=== PATIENT | male | born 1970 | race African-American/Black ===

== ENCOUNTER 2016-11-29 21:46 | Emergency (ER) | payer MEDICAID, OTHER ==
[~2016-11-29] VITALS: Ht 175.3 cm; Wt 95.3 kg
[2016-11-29] MEDS ORDERED: MELO15TA39 (22:13)
[2016-11-29] MEDS ORDERED: PENI500T (22:13)
[2016-11-29] MEDS: LACTATED RINGERS 1,000 ML IV ONE (22:41)
[2016-11-29] MEDS: ONDANSETRON 4 MG/2 ML (SDV) Z0FRAN IVP ONE (22:41)
[2016-11-29] MEDS: ACETAMINOPHEN 500 MG TAB (TYLENOL) PO ONE (22:41)
[2016-11-29 22:44] LABS: BASOPHILS % (AUTO) 0 % (0-10); EOSINOPHILS % (AUTO) 0 % (0-10); LYMPHOCYTES # (AUTO) 1.6 X 10^3 (1.0-4.0); LYMPHOCYTES % (AUTO) 25 % (12-44); MEAN CORPUSCULAR HEMOGLOBIN 23 PG (25-34); MEAN CORPUSCULAR HGB CONC 34 G/DL (32-36); MEAN CORPUSCULAR VOLUME 69 FL (80-99); MEAN PLATELET VOLUME 9.9 FL (7.4-10.4); MONOCYTES # (AUTO) 0.7 X 10^3 (0.0-1.0); MONOCYTES % (AUTO) 10 % (0-12); NEUTROPHILS # (AUTO) 4.1 X 10^3 (1.8-7.8); NEUTROPHILS % (AUTO) 64 % (42-75); PLATELET COUNT 243 10^3/uL (130-400); RED BLOOD COUNT 6.46 10^6/uL (4.35-5.85); RED CELL DISTRIBUTION WIDTH 18.5 % (10.0-14.5); WHITE BLOOD COUNT 6.3 10^3/uL (4.3-11.0)
[2016-11-29 22:53] LABS: PROTHROMBIN TIME PATIENT 12.5 SEC (12.2-14.7)
[2016-11-29 23:04] LABS: ALANINE AMINOTRANSFERASE 13 U/L (0-55); ALBUMIN 4.5 G/DL (3.2-4.5); AMYLASE 112 U/L (25-125); ANION GAP 15 MMOL/L (5-14); ASPARTATE AMINO TRANSFERASE 17 U/L (5-34); BILIRUBIN,TOTAL 0.6 MG/DL (0.1-1.0); BLOOD UREA NITROGEN 11 MG/DL (7-18); BUN/CREATININE RATIO 8; CALCIUM 9.7 MG/DL (8.5-10.1); CARBON DIOXIDE 21 MMOL/L (21-32); CHLORIDE 104 MMOL/L (98-107); CREATINE KINASE 204 U/L (30-200); CREATININE SERUM 1.34 MG/DL (0.60-1.30); GFR ESTIMATED > 60; GLUCOSE 106 MG/DL (70-105); LIPASE 20 U/L (8-78); MAGNESIUM 2.3 MG/DL (1.8-2.4); POTASSIUM 4.2 MMOL/L (3.6-5.0); SODIUM 140 MMOL/L (135-145); TOTAL PROTEIN 8.4 G/DL (6.4-8.2)
--- NOTE | 2016-11-29 23:10 | ED General ---
General Chief Complaint: General Problems/Pain Stated Complaint: FEVER,SWEATING,BLURRED VISION,STUTTERING,VOMITING Nursing Triage Note: GENERALIZED LEFT SIDED SWEATING/PAIN X4 DAYS Nursing Sepsis Screen: No Definite Risk Source of Information: Patient, Other (SIGNIFICANT OTHER) History of Present Illness Time Seen by Provider: 22:15 Initial Comments PT WITH MULTIPLE COMPLAINTS HAS NOT FELT WELL FOR 3-4 DAYS, BUT HAS BEEN WORSE SINCE YESTERDAY C/O FEVER UP TO 102 C/O NAUSEA AND VOMITING--VOMITED X 2 TODAY AND STATES HE 'CAN'T KEEP ANYTHING DOWN' NO DIARRHEA NO ABDOMINAL PAIN C/O DIZZINESS C/O BLURRY VISION C/O SWEATING ONLY ON THE LEFT SIDE OF HIS BODY C/O GENERALIZED WEAKNESS C/O SLIGHT CHEST PAIN C/O SLIGHT HEADACHE NO NECK OR BACK PAIN OR STIFFNESS NO PARESTHESIAS OR MOTOR DEFICITS NO URINARY SYMPTOMS NO DIFFICULTY WITH BM'S NO COUGH OR SHORTNESS OF BREATH NO KNOWN SICK CONTACTS WENT TO [facility] IN [place] LAST PM FOR SAME STATES THEY DID NOT GIVE HIM A DX BUT GAVE HIM RX'S FOR PENICILLIN AND MOBIC. PCP: SHANEL Allergies and Home Medications Allergies Coded Allergies: No Known Drug Allergies (Unverified , 11/29/16) Home Medications Cefdinir 300 Mg Capsule, 300 MG PO BID, #20 FOR INFECTION Prescribed by: LEA LINDSEY on 11/30/16 0121 Meloxicam 15 Mg Tablet, #20 (Reported) Ondansetron 4 Mg Tab.rapdis, 4 MG PO Q4H, #10 Prescribed by: LEA LINDSEY on 11/30/16 0121 Penicillin V Potassium 500 Mg Tablet, #28 (Reported) Past Iuovrqp-Pvljiu-Jwzdee Hx Patient Social History Alcohol Use: Denies Use Recreational Drug Use: No Smoking Status: Current Everyday Smoker Type Used: Cigarettes 2nd Hand Smoke Exposure: Yes Recent Foreign Travel: No Contact w/Someone Who Travel: No Recent Infectious Disease Expo: No Recent Hopitalizations: No Immunizations Up To Date Tetanus Booster (TDap): Unknown Seasonal Allergies Seasonal Allergies: No Surgeries Surgeries: Adenoidectomy, Tonsillectomy Physical Exam Vital Signs Vital Sign - Last 12Hours 11/29/16 22:14 Temp 100.7 Pulse 71 Resp 16 B/P (MAP) 121/68 Pulse Ox 97 O2 Delivery Room Air Capillary Refill : Less Than 3 Seconds Focused Exam Lactic Acid Level Laboratory Tests Test 11/29/16 22:30 Lactic Acid Level 1.59 MMOL/L (0.50-2.00) Progress/Results/Core Measures Results/Orders Lab Results Laboratory Tests Test 11/29/16 22:30 11/29/16 23:55 Range/Units White Blood Count 6.3 4.3-11.0 10^3/uL Red Blood Count 6.46 H 4.35-5.85 10^6/uL Hemoglobin 15.0 13.3-17.7 G/DL Hematocrit 45 40-54 % Mean Corpuscular Volume 69 L 80-99 FL Mean Corpuscular Hemoglobin 23 L 25-34 PG Mean Corpuscular Hemoglobin Concent 34 32-36 G/DL Red Cell Distribution Width 18.5 H 10.0-14.5 % Platelet Count 243 130-400 10^3/uL Mean Platelet Volume 9.9 7.4-10.4 FL Neutrophils (%) (Auto) 64 42-75 % Lymphocytes (%) (Auto) 25 12-44 % Monocytes (%) (Auto) 10 0-12 % Eosinophils (%) (Auto) 0 0-10 % Basophils (%) (Auto) 0 0-10 % Neutrophils # (Auto) 4.1 1.8-7.8 X 10^3 Lymphocytes # (Auto) 1.6 1.0-4.0 X 10^3 Monocytes # (Auto) 0.7 0.0-1.0 X 10^3 Eosinophils # (Auto) 0.0 0.0-0.3 10^3/uL Basophils # (Auto) 0.0 0.0-0.1 10^3/uL Prothrombin Time 12.5 12.2-14.7 SEC INR Comment 1.0 0.8-1.4 Activated Partial Thromboplast Time 29 24-35 SEC Sodium Level 140 135-145 MMOL/L Potassium Level 4.2 3.6-5.0 MMOL/L Chloride Level 104 98-107 MMOL/L Carbon Dioxide Level 21 21-32 MMOL/L Anion Gap 15 H 5-14 MMOL/L Blood Urea Nitrogen 11 7-18 MG/DL Creatinine 1.34 H 0.60-1.30 MG/DL Estimat Glomerular Filtration Rate > 60 BUN/Creatinine Ratio 8 Glucose Level 106 H 70-105 MG/DL Lactic Acid Level 1.59 0.50-2.00 MMOL/L Calcium Level 9.7 8.5-10.1 MG/DL Magnesium Level 2.3 1.8-2.4 MG/DL Total Bilirubin 0.6 0.1-1.0 MG/DL Aspartate Amino Transf (AST/SGOT) 17 5-34 U/L Alanine Aminotransferase (ALT/SGPT) 13 0-55 U/L Alkaline Phosphatase 81 40-136 U/L Total Creatine Kinase 204 H 30-200 U/L Creatine Kinase MB 0.4 <6.6 NG/ML Troponin I < 0.30 <0.30 NG/ML Total Protein 8.4 H 6.4-8.2 G/DL Albumin 4.5 3.2-4.5 G/DL Amylase Level 112 25-125 U/L Lipase 20 8-78 U/L Free Thyroxine 0.74 0.70-1.48 NG/DL TSH [place] Testing 0.23 L 0.35-4.94 UIU/ML Urine Color YELLOW Urine Clarity SLIGHTLY CLOUDY Urine pH 5 5-9 Urine Specific [place] 1.025 H 1.016-1.022 Urine Protein 2+ H NEGATIVE Urine Glucose (UA) NEGATIVE NEGATIVE Urine Ketones 3+ H NEGATIVE Urine Nitrite NEGATIVE NEGATIVE Urine Bilirubin 1+ H NEGATIVE Urine Urobilinogen NORMAL NORMAL MG/DL Urine Leukocyte Esterase 2+ H NEGATIVE Urine RBC (Auto) 4+ H NEGATIVE Urine RBC 5-10 H /HPF Urine WBC 5-10 H /HPF Urine Squamous Epithelial Cells 25-50 H /HPF Urine Crystals NONE /LPF Urine Bacteria FEW H /HPF Urine Casts NONE /LPF Urine Mucus LARGE H /LPF Urine Culture Indicated YES Urine Opiates Screen NEGATIVE NEGATIVE Urine Oxycodone Screen NEGATIVE NEGATIVE Urine Methadone Screen NEGATIVE NEGATIVE Urine Propoxyphene Screen NEGATIVE NEGATIVE Urine Barbiturates Screen NEGATIVE NEGATIVE Ur Tricyclic Antidepressants Screen NEGATIVE NEGATIVE Urine Phencyclidine Screen NEGATIVE NEGATIVE Urine Amphetamines Screen NEGATIVE NEGATIVE Urine Methamphetamines Screen NEGATIVE NEGATIVE Urine Benzodiazepines Screen NEGATIVE NEGATIVE Urine Cocaine Screen NEGATIVE NEGATIVE Urine Cannabinoids Screen POSITIVE H NEGATIVE My Orders Orders - LEA LINDSEY DO Saline Lock/Iv-Start (11/29/16 22:24) Ekg Tracing (11/29/16 22:24) Monitor-Rhythm Ecg Trace Only (11/29/16 22:24) Ct Head Wo (11/29/16 22:24) Amylase (11/29/16 22:24) Cbc With Automated Diff (11/29/16 22:24) Comprehensive Metabolic Panel (11/29/16 22:24) Creatine Kinase (11/29/16 22:24) Creatine Kinase Mb (11/29/16 22:24) Drug Screen Stat (Urine) (11/29/16 22:24) Lactic Acid Analyzer (11/29/16 22:24) Lipase (11/29/16 22:24) Magnesium (11/29/16 22:24) Protime With Inr (11/29/16 22:24) Partial Thromboplastin Time (11/29/16 22:24) Thyroid Analyzer (11/29/16 22:24) Troponin I (11/29/16 22:24) Ua Culture If Indicated (11/29/16 22:24) Blood Culture (11/29/16 22:24) Chest Pa/Lat (2 View) (11/29/16 22:24) Saline Lock/Iv-Start (11/29/16 22:24) Lactated Ringers (Lr 1000 Ml Iv Solution (11/29/16 22:24) Ondansetron Injection (Zofran Injectio (11/29/16 22:30) Acetaminophen Tablet (Tylenol Tablet) (11/29/16 22:30) Free T4 (Free Thyroxine) (11/29/16 22:30) Ct Chest/Abdomen/Pelvis W (11/30/16 00:11) Urine Culture (11/29/16 23:55) Ceftriaxone Injection (Rocephin Injectio (11/30/16 01:15) Rx-Ondansetron Po (Rx-Zofran Po) (11/30/16 01:20) Medications Given in ED Current Medications Medications Dose Ordered Sig/Melina Route Start Time Stop Time Status Last Admin Dose Admin Acetaminophen 1,000 mg ONCE ONCE PO 11/29/16 22:30 11/29/16 22:31 DC 11/29/16 22:41 1,000 MG Lactated Ringer's 1,000 ml @ 0 mls/hr Q0M ONCE IV 11/29/16 22:24 11/29/16 22:27 DC 11/29/16 22:41 0 MLS/HR Ondansetron HCl 4 mg ONCE ONCE IVP 11/29/16 22:30 11/29/16 22:31 DC 11/29/16 22:41 4 MG Vital Signs/I&O Vital Sign - Last 12Hours 11/29/16 11/29/16 22:14 22:41 Temp 100.7 100.7 Pulse 71 Resp 16 B/P (MAP) 121/68 Pulse Ox 97 O2 Delivery Room Air Intake and Output 11/30/16 00:00 Intake Total 1000 ml Balance 1000 ml Blood Pressure Mean: 85 Progress Note : Progress Note PT STATES HE FEELS MUCH BETTER AT DISMISSAL Departure Communication Progress Notes 0115--SPOKE WITH DR. PIZARRO, WILL SEE PT IN CLINIC LATER TODAY FOR FURTHER CARE Impression Impression: Primary Impression: Urinary tract infection Additional Impression: Dehydration Disposition: 01 HOME, SELF-CARE Condition: Stable Departure-Patient Inst. Referrals: [facility] Patient Instructions: Dehydration, Adult (DC), Urinary Tract Infection, Adult ( DC) Add. Discharge Instructions: STOP PENICILLIN AND MOBIC LOTS OF CLEAR LIQUIDS--WATER, BROTH, JELLO, GATORADE ALTERNATE TYLENOL AND MOTRIN EVERY 2-3 HOURS NEEDED FOR PAIN FOLLOW UP WITH [facility] IN THE MORNING FOR FURTHER CARE All discharge instructions reviewed with patient and/or family. Voiced understanding. Scripts Ondansetron (Zofran Odt) 4 Mg Tab.rapdis 4 MG PO Q4H for Nausea/Vomiting, #10 TAB Prov: LEA LINDSEY DO 11/30/16 Cefdinir (Cefdinir) 300 Mg Capsule 300 MG PO BID, #20 CAP FOR INFECTION Prov: LEA LINDSEY DO 11/30/16 LEA LINDSEY DO Nov 29, 2016 23:10
[2016-11-29 23:24] LABS: TROPONIN I < 0.30 NG/ML (<0.30)
[2016-11-30 00:04] LABS: KETONES,URINE 3+ (NEGATIVE); LEUKOCYTE ESTERASE ,URINE 2+ (NEGATIVE); NITRITE,URINE NEGATIVE (NEGATIVE); PH,URINE 5 (5-9); PROTEIN,URINE 2+ (NEGATIVE); UROBILINOGEN,URINE NORMAL (NORMAL)
[2016-11-30 00:17] LABS: SQUAMOUS EPITHELIAL CELL,UR 25-50 /HPF
[2016-11-30 00:18] LABS: BILIRUBIN,URINE 1+ (NEGATIVE)
[2016-11-30] MEDS ORDERED: CEFD300C3 PO (01:21)
[2016-11-30] MEDS ORDERED: ONDA4TAB8 PO (01:21)
[2016-11-30] MEDS ORDERED: RX-ONDANSETRON 4 MG ODT (ZOFRAN) PPK #4 ONE (01:23)
[2016-11-30] MEDS: cefTRIAXone INJECTION 1,000 MG in NS (IVPB) 50 ML IV ONE (01:25)
[2016-11-30] MEDS: RX-ONDANSETRON 4 MG ODT (ZOFRAN) PPK #4 PO STA (01:30)
[2016-11-30 01:31] VITALS: BP 127/81
--- NOTE | 2016-11-30 06:50 | Diagnostic Imaging Report ---
PROCEDURE: CT head without contrast. TECHNIQUE: Multiple contiguous axial images were obtained through the brain without the use of intravenous contrast. INDICATION: Fever, sweating, blurred vision. FINDINGS: There is no intracranial hemorrhage, hydrocephalus, edema, mass or mass effect. There was no evidence for elevated intracranial pressures. The basilar cisterns are patent. Incidental punctate calcification associated with the right tentorium noted. Subfalcine calcifications anteriorly. IMPRESSION: No hemorrhage, edema or acute pathology. Dictated by: Dictated on workstation # [id number]
--- NOTE | 2016-11-30 07:29 | Diagnostic Imaging Report ---
PROCEDURE: CT chest, abdomen, and pelvis with contrast. TECHNIQUE: Multiple contiguous axial images were obtained through the chest, abdomen, and pelvis after the administration of intravenous contrast. INDICATION: Sweating, fever, blurred vision. CHEST: Bullous disease and bleb formation in the left pulmonary apex is noted. There is no apparent pneumothorax. Sub-solid groundglass like nodule in the right upper lobe measured 8 mm. There is several tiny subcentimeter akiko-fissural nodular foci likely intramammary lymph nodes. A dominant or suspicious appearing masses not apparent and no thoracic adenopathy. No effusion or pneumothorax and no evidence of lymphadenopathy. The patent aorta is nonaneurysmal. The heart and pericardium normal. No acute soft tissue or osseous chest wall disease. ABDOMEN AND PELVIS: The adrenals negative. The spleen, pancreas, liver, gallbladder, bile ducts all normal. Kidneys are unobstructed and nonacute and nonfocal. I am unable to identify with certainty the appendix, however, there is no pericecal or right lower quadrant inflammatory changes to suggest underlying appendicitis. There is no diverticulitis and there is no ascites, abscess, hematoma or other fluid collection. There is no pneumatosis or free air. The aortoiliac atherosclerosis without findings end organ ischemia. No mesenteric or retroperitoneal adenopathy. There is asymmetric transitional anatomy across the lumbosacral junction with no acute appearing bony pathology. IMPRESSION: No acute finding seen at CT chest, abdomen and pelvis. Dictated by: Dictated on workstation # [id number]
--- NOTE | 2016-11-30 07:32 | Diagnostic Imaging Report ---
PA and lateral views of the chest. INDICATION: Fever. Blurred vision. FINDINGS: There is lucency in the left lung apex compatible with bulla. There is no significant consolidation. The heart size is normal. No effusion or pneumothorax. The mediastinum and fely appear unremarkable. IMPRESSION: Unremarkable exam. Dictated by: Dictated on workstation # [id number]
== END 2016-11-30 01:32 | disposition home or self-care (01) ==
LOC: EDUNIT# 21:46 → ER 21:50
DX: N30.91 Cystitis, unspecified with hematuria (principal); E86.0 Dehydration; F17.210 Nicotine dependence, cigarettes, uncomplicated
CPT/HCPCS: 36415; 70450; 71020; 71260; 74177; 80053; 80306; 81000; 82150; 82550; 82553; 83605; 83690; 83735; 84439; 84443; 84484; 85025; 85610; 85730; 87040; 87088; 93041